=== PATIENT | male | born 1945 | race Caucasian/White ===

== ENCOUNTER 2022-06-16 12:25 | Emergency (ER) | payer MEDICARE, OTHER | END 2022-06-16 15:26 | disposition home or self-care (01) | LOC: CSHERS 12:25 | DX: S09.90XA Unspecified injury of head, initial encounter (principal); I10 Essential (primary) hypertension; E78.5 Hyperlipidemia, unspecified; W18.09XA Striking against other object with subsequent fall, initial encounter | CPT/HCPCS: 70450; 70486 ==

== ENCOUNTER 2023-09-11 13:42 | Outpatient (CLI) | payer OTHER | END 2023-09-11 13:43 | disposition home or self-care (01) | LOC: CSHMRI 13:42 | PROVIDERS: ATTEND Psychiatry & Neurology Neurology | DX: R42 Dizziness and giddiness (principal); I77.89 Other specified disorders of arteries and arterioles | CPT/HCPCS: 70544; 70547 ==

== ENCOUNTER 2023-09-23 12:46 | Outpatient (CLI) | payer OTHER ==
[~2023-09-23 12:46] MED LIST: Iopamidol 370 76% 100 ML VIAL ONE
== END 2023-09-23 12:47 | disposition home or self-care (01) ==
LOC: CSHCT 12:46
PROVIDERS: ATTEND Psychiatry & Neurology Neurology
DX: R93.89 Abnormal findings on diagnostic imaging of other specified body structures (principal); I65.23 Occlusion and stenosis of bilateral carotid arteries; I67.2 Cerebral atherosclerosis
CPT/HCPCS: 70496; 70498; 82565

== ENCOUNTER 2024-08-15 23:06 | Emergency (ER) | payer OTHER ==
[2024-08-16] MEDS ORDERED: Bacitracin 1 PK ONE (00:23)
== END 2024-08-16 00:37 | disposition home or self-care (01) ==
LOC: CSHERS 23:06
DX: S01.111A Laceration without foreign body of right eyelid and periocular area, initial encounter (principal); S09.90XA Unspecified injury of head, initial encounter; E11.9 Type 2 diabetes mellitus without complications; I10 Essential (primary) hypertension; I48.91 Unspecified atrial fibrillation; E78.5 Hyperlipidemia, unspecified; Z95.1 Presence of aortocoronary bypass graft; Z79.01 Long term (current) use of anticoagulants; Z79.84 Long term (current) use of oral hypoglycemic drugs; Z79.899 Other long term (current) drug therapy; W01.10XA Fall on same level from slipping, tripping and stumbling with subsequent striking against unspecified object, initial encounter; Y92.481 Parking lot as the place of occurrence of the external cause
CPT/HCPCS: 12011; 70450